=== PATIENT | female | born 1955 | race Caucasian/White ===

== ENCOUNTER 2016-10-22 14:44 | Outpatient (CLI) | payer MEDICARE, MEDICAID | END 2016-10-22 14:45 | disposition EMS.NT | DX: M79.605 Pain in left leg (principal) | CPT/HCPCS: A0425; A0429 ==

== ENCOUNTER 2016-10-22 14:55 | Emergency (ER) | payer MEDICARE, MEDICAID ==
[2016-10-22] MEDS ORDERED: ACETAMINOPHEN 325 MG TABLET PO ONE (16:23)
[2016-10-22] MEDS ORDERED: KETOROLAC 60 MG/2 ML VIAL ONE (16:23)
[2016-10-22] MEDS: ACETAMINOPHEN 325 MG TABLET PO STA (16:26)
[2016-10-22] MEDS: KETOROLAC 60 MG/2 ML VIAL IM STA (16:26)
== END 2016-10-22 19:00 | disposition home or self-care (01) ==
DX: S82.035A Nondisplaced transverse fracture of left patella, initial encounter for closed fracture (principal); W19.XXXA Unspecified fall, initial encounter; Y92.009 Unspecified place in unspecified non-institutional (private) residence as the place of occurrence of the external cause; M19.90 Unspecified osteoarthritis, unspecified site
CPT/HCPCS: 36415; 73564; 80053; 83690; 96372; 99283; 99284; A9270

== ENCOUNTER 2017-01-23 15:21 | Outpatient (CLI) | payer MEDICARE, MEDICAID | END 2017-01-23 15:22 | disposition home or self-care (01) | LOC: NS 15:21 | PROVIDERS: ATTEND Family Medicine | DX: Z71.3 Dietary counseling and surveillance (principal); E66.3 Overweight; Q87.1 Congenital malformation syndromes predominantly associated with short stature; Z68.41 Body mass index [BMI] 40.0-44.9, adult | CPT/HCPCS: 97802 ==

== ENCOUNTER 2017-01-30 10:02 | Outpatient (CLI) | payer MEDICARE, MEDICAID | END 2017-01-30 10:03 | disposition critical access hospital (66) | LOC: EMS 10:02 | PROVIDERS: ATTEND Surgery | DX: R53.1 Weakness (principal) | CPT/HCPCS: A0425; A0429 ==

== ENCOUNTER 2017-01-30 10:21 | Emergency (ER) | payer MEDICARE, MEDICAID ==
--- NOTE | 2017-01-30 11:13 | ED Physician Documentation ---
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 She last had chemo last week consisting of cytoxan orally and 5FU/ methotrexate weekly. She had last infusion one week ago and has now developed diarrhea and weakness without fever. Review of Systems Constitutional: reports: Myalgias, Fatigue. denies: Fever, Chills Eyes: denies: Decreased vision Ears: denies: Ear pain Nose: denies: Rhinorrhea / runny nose, Congestion Throat: denies: Sore throat Cardiac: denies: Chest pain / pressure, Palpitations Respiratory: denies: Dyspnea, Cough GI: reports: Diarrhea. denies: Abdominal Pain, Nausea, Vomiting : denies: Dysuria, Frequency Skin: denies: Rash Musculoskeletal: denies: Neck pain, Back pain, Extremity pain Neurologic: reports: Generalized weakness. denies: Focal weakness, Numbness PD PAST MEDICAL HISTORY - Past Medical History Cardiovascular: None Respiratory: None Neuro: CVA Endocrine/Autoimmune: None GI: GERD : None Psych: Eating disorder Musculoskeletal: Osteoarthritis, Fatigue, Scoliosis, Chronic back pain - Past Surgical History Past Surgical History: Yes General: Other Ortho: Spine surgery, Other HEENT: Tonsil/Adenoidectomy - Present Medications Home Medications: Ambulatory Orders Medication Instructions Recorded Confirmed Sertraline HCl 200 mg PO DAILY 12/19/12 01/30/17 Furosemide [Lasix] 80 mg PO BID 08/10/13 01/30/17 Multivitamin [Multivitamins] 1 each PO DAILY 08/10/13 01/30/17 Ascorbic Acid [Vitamin C] 500 mg ORAL DAILY 01/30/17 01/30/17 Calcium Carbonate/Vitamin D3 500 mg ORAL TID 01/30/17 01/30/17 [Calcium 500-Vit D3 200 Tablet] Cholecalciferol (Vitamin D3) 100 unit ORAL BID 01/30/17 01/30/17 [Vitamin D3] Cyclophosphamide 100 mg PO BID 01/30/17 01/30/17 Docusate Sodium 100 mg PO DAILY PRN 01/30/17 01/30/17 Ferrous Gluconate 324 mg PO DAILY 01/30/17 01/30/17 Lactobacillus Acidophilus 1 tab ORAL DAILY 01/30/17 01/30/17 [Acidophilus] Omeprazole [PriLOSEC] 20 mg ORAL DAILY 01/30/17 01/30/17 Spironolactone 25 mg PO DAILY 01/30/17 01/30/17 Vit B1/B2/B6/FA/Mecobalamin 1,000 mg ORAL DAILY 01/30/17 01/30/17 [Methaver 109 mg Capsule] - Allergies Allergies/Adverse Reactions: Allergies Allergy/AdvReac Type Severity Reaction Status Date / Time methohexital sodium * Allergy Respiratory Verified 06/28/16 17:22 [From Brevital] metoclopramide HCl * Allergy Respiratory Verified 06/28/16 17:22 [From Reglan] - Social History Does the pt smoke?: No Smoking Status: Never smoker Does the pt drink ETOH?: No Does the pt have substance abuse?: No - Immunizations Immunizations are current?: Yes - POLST Patient has POLST: No PD ED PE NORMAL - Vitals Vital signs reviewed: Yes (hypertensive) - General General: No acute distress, Well developed/nourished - HEENT HEENT: Atraumatic, PERRL, EOMI, Other (cerumen on the right the left is clear mucous membranes are dry and the patient has no upper teeth. ) - Neck Neck: Supple, no meningeal sign, No bony TTP - Cardiac Cardiac: RRR, No murmur - Respiratory Respiratory: No respiratory distress, Clear bilaterally - Abdomen Abdomen: Soft, Non tender - Back Back: No CVA TTP, No spinal TTP - Derm Derm: Normal color, No rash - Extremities Extremities: No deformity, No edema - Neuro Neuro: Alert and oriented X 3, No motor deficit, No sensory deficit, Normal speech - Psych Psych: Normal mood, Normal affect Results - Vitals Vitals: Vital Signs - 24 hr 01/30/17 01/30/17 10:23 13:13 Temperature 36.1 C L 37 C Heart Rate 71 70 Respiratory 20 16 Rate Blood Pressure 123/95 H 143/93 H O2 Saturation 95 98 Oxygen O2 Source Nasal cannula - Labs Labs: Laboratory Tests 01/30/17 01/30/17 01/30/17 11:50 11:55 11:55 WBC 3.0 L RBC 3.88 L Hgb 12.5 Hct 35.8 L MCV 92.3 MCH 32.1 H MCHC 34.8 RDW 23.8 H Plt Count 137 MPV 7.2 L Neut # 2.4 Lymph # 0.2 L [place] # 0.2 Eos # 0.1 Baso # 0.0 Absolute Nucleated RBC 0.00 Nucleated RBCs 0.0 Manual Slide Review Indicated RBC Morph Micro Appear 2+ ANISOCYTOSIS Sodium 136 Potassium 2.9 L Chloride 93 L Carbon Dioxide 32 Anion Gap 11.0 BUN 18 Creatinine 0.4 Estimated GFR (MDRD) 163 Glucose 104 H Lactic Acid Calcium 10.4 H Total Bilirubin 1.6 H AST 29 ALT 22 Alkaline Phosphatase 97 Troponin I Total Protein 7.3 Albumin 4.1 Globulin 3.2 Albumin/Globulin Ratio 1.3 Lipase 23 Urine Color YELLOW Urine Clarity CLEAR Urine pH 7.0 Ur Specific [place] 1.010 Urine Protein NEGATIVE Urine Glucose (UA) NEGATIVE Urine Ketones NEGATIVE Urine Occult Blood NEGATIVE Urine Nitrite NEGATIVE Urine Bilirubin NEGATIVE Urine Urobilinogen 0.2 (NORMAL) Ur Leukocyte Esterase NEGATIVE Ur Microscopic Review NOT INDICATED Urine Culture Comments NOT INDICATED 01/30/17 01/30/17 11:55 11:55 WBC RBC Hgb Hct MCV MCH MCHC RDW Plt Count MPV Neut # Lymph # [place] # Eos # Baso # Absolute Nucleated RBC Nucleated RBCs Manual Slide Review RBC Morph Micro Appear Sodium Potassium Chloride Carbon Dioxide Anion Gap BUN Creatinine Estimated GFR (MDRD) Glucose Lactic Acid 0.9 Calcium Total Bilirubin AST ALT Alkaline Phosphatase Troponin I < 0.04 Total Protein Albumin Globulin Albumin/Globulin Ratio Lipase Urine Color Urine Clarity Urine pH Ur Specific [place] Urine Protein Urine Glucose (UA) Urine Ketones Urine Occult Blood Urine Nitrite Urine Bilirubin Urine Urobilinogen Ur Leukocyte Esterase Ur Microscopic Review Urine Culture Comments - Rads (name of study) 2 view chest Radiology: Prelim report reviewed (Impression: 1. No focal consolidation. 2. 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 Departure - Departure Disposition: 01 Home, Self Care Clinical Impression: Dehydration, Hypokalemia Instructions: ED Diet High Potassium, ED Dehydration Follow-Up: Violetta Sams MD [Primary Care Provider] -
--- NOTE | 2017-01-30 11:17 | XRAY Report ---
EXAM: CHEST RADIOGRAPHY EXAM DATE: 01/30/2017 10:57 AM. CLINICAL HISTORY: Weakness on chemo. COMPARISON: Chest radiograph dated 11/10/2012. TECHNIQUE: 2 views. FINDINGS: Lungs/Pleura: No focal opacities evident. No pleural effusion. No pneumothorax. Normal volumes. Mediastinum: The heart is enlarged. The pulmonary vasculature is centrally indistinct. Other: Left-sided Port-A-Cath position of this catheter tip at the junction of the SVC and left brach iocephalic vein. IMPRESSION: 1. No focal consolidation. 2. Cardiomegaly with mild central pulmonary vascular congestion. [facility] Referring Provider Line: [phone] SITE ID: [id number]
[2017-01-30 12:09] LABS: BILIRUBIN,URINE NEGATIVE (NEGATIVE)
[2017-01-30 12:10] LABS: BASOPHILS % (AUTO) 0.4 %; EOSINOPHILS # (AUTO) 0.1 10^3/uL (0.0-0.7); EOSINOPHILS % (AUTO) 4.9 %; HCT - HEMATOCRIT 35.8 % (37.0-47.0); HGB - HEMOGLOBIN 12.5 g/dL (12.0-16.0); LYMPHOCYTES # (AUTO) 0.2 10^3/uL (1.5-3.5); LYMPHOCYTES % (AUTO) 6.9 %; MEAN CORPUSCULAR HEMOGLOBIN 32.1 pg (27.0-31.0); MEAN CORPUSCULAR HGB CONC 34.8 g/dL (32.0-36.0); MEAN CORPUSCULAR VOLUME 92.3 fL (81.0-99.0); MEAN PLATELET VOLUME 7.2 fL (7.9-10.8); MONOCYTES # (AUTO) 0.2 10^3/uL (0.0-1.0); MONOCYTES % (AUTO) 7.5 %; NEUTROPHILS # (AUTO) 2.4 10^3/uL (1.5-6.6); NEUTROPHILS % (AUTO) 80.3 %; RED BLOOD COUNT 3.88 10^6/uL (4.20-5.40); RED CELL DISTRIBUTION WIDTH 23.8 % (12.0-15.0)
[2017-01-30 12:10] LABS: UA CHARGE (STRIP ONLY) YES; UR CULTURE IF IND NOT INDICATED
[2017-01-30 12:17] LABS: ALBUMIN/GLOBULIN RATIO 1.3 (1.0-2.2); BILIRUBIN,TOTAL 1.6 mg/dL (0.2-1.0); CALCIUM 10.4 mg/dL (8.5-10.3); CREATININE 0.4 mg/dL (0.4-1.0); POTASSIUM 2.9 mmol/L (3.5-5.0); TOTAL PROTEIN 7.3 g/dL (6.7-8.2)
[2017-01-30] MEDS ORDERED: POTASSIUM BICARB 25 MEQ TABLET PO STA (13:27)
[2017-01-30] MEDS ORDERED: POTASSIUM BICARB 25 MEQ TABLET PO ONE (13:31)
[2017-01-30] MEDS ORDERED: SODIUM CHLORIDE 0.9% 1,000 ML IV ONE (13:59)
[2017-01-30 16:25] VITALS: BP 112/64
== END 2017-01-30 16:33 | disposition home or self-care (01) ==
LOC: EDUNIT# → ED 10:21
DX: E86.0 Dehydration (principal); E87.6 Hypokalemia; C50.919 Malignant neoplasm of unspecified site of unspecified female breast; Q87.1 Congenital malformation syndromes predominantly associated with short stature; Z86.73 Personal history of transient ischemic attack (TIA), and cerebral infarction without residual deficits; K21.9 Gastro-esophageal reflux disease without esophagitis; M19.90 Unspecified osteoarthritis, unspecified site
CPT/HCPCS: 36415; 71020; 80053; 81003; 83605; 83690; 84484; 85025; 87040; 96374; 99284; A9270; 81001; 87086

== ENCOUNTER 2017-02-04 10:04 | Outpatient (CLI) | payer MEDICARE, MEDICAID | END 2017-02-04 10:05 | disposition critical access hospital (66) | LOC: EMS 10:04 | PROVIDERS: ATTEND Surgery | DX: R19.7 Diarrhea, unspecified (principal); R53.1 Weakness | CPT/HCPCS: A0425; A0429 ==

== ENCOUNTER 2017-02-04 10:12 | Emergency (ER) | payer MEDICARE, MEDICAID ==
[2017-02-04] MEDS ORDERED: SODIUM CHLORIDE 0.9% 500 ML IV ONE (10:32)
[2017-02-04] MEDS ORDERED: SODIUM CHLORIDE 0.9% 30 ML ONE (10:44)
[2017-02-04 11:35] LABS: BASOPHILS % (AUTO) 0.5 %; EOSINOPHILS # (AUTO) 0.1 10^3/uL (0.0-0.7); EOSINOPHILS % (AUTO) 3.1 %; HCT - HEMATOCRIT 30.7 % (37.0-47.0); HGB - HEMOGLOBIN 10.9 g/dL (12.0-16.0); LYMPHOCYTES # (AUTO) 0.1 10^3/uL (1.5-3.5); LYMPHOCYTES % (AUTO) 3.8 %; MEAN CORPUSCULAR HGB CONC 35.6 g/dL (32.0-36.0); MEAN CORPUSCULAR VOLUME 92.7 fL (81.0-99.0); MEAN PLATELET VOLUME 7.6 fL (7.9-10.8); MONOCYTES # (AUTO) 0.2 10^3/uL (0.0-1.0); MONOCYTES % (AUTO) 5.1 %; NEUTROPHILS # (AUTO) 2.8 10^3/uL (1.5-6.6); NEUTROPHILS % (AUTO) 87.5 %; NUCLEATED RED BLOOD CELLS AUTO 0.1 /100WBC; RED BLOOD COUNT 3.31 10^6/uL (4.20-5.40); RED CELL DISTRIBUTION WIDTH 22.7 % (12.0-15.0); UNCORRECTED WHITE BLOOD COUNT 3.2 x10^3/uL; WHITE BLOOD COUNT 3.2 x10^3/uL (4.8-10.8)
[2017-02-04 11:46] LABS: ALBUMIN/GLOBULIN RATIO 1.3 (1.0-2.2); BILIRUBIN,TOTAL 0.9 mg/dL (0.2-1.0); CALCIUM 9.5 mg/dL (8.5-10.3); CREATININE 0.4 mg/dL (0.4-1.0); POTASSIUM 3.1 mmol/L (3.5-5.0); TOTAL PROTEIN 6.1 g/dL (6.7-8.2)
[2017-02-04 12:34] LABS: BILIRUBIN,URINE NEGATIVE (NEGATIVE)
[2017-02-04 12:38] LABS: UA CHARGE (STRIP ONLY) YES; UR CULTURE IF IND NOT INDICATED
[2017-02-04] MEDS ORDERED: POTASSIUM BICARB 25 MEQ TABLET PO STA (13:20)
[2017-02-04] MEDS ORDERED: POTASSIUM BICARB 25 MEQ TABLET PO ONE (13:21)
--- NOTE | 2017-02-04 13:29 | ED Physician Documentation ---
PD HPI NVD - Stated complaint Stated Complaint: WEAKNESS - Chief complaint Chief Complaint: Abd Pain - History obtained from History obtained from: Patient - History of Present Illness Timing - onset: Today Timing - duration: Hours Timing - details: Gradual onset, Still present Associated symptoms: Other (diarreha and weakness) Improved by: Laying still, BM Worsened by: Moving Similar symptoms before: Diagnosis (dehydration) Recently seen: Emergency Dept (Seen here for dehydration with chemo and given IV saline last week.), Other (The patient is getting chemo for breast cancer.) - Additonal information Additional information: 61 y/o Female with a history of Prader-Willi syndrome has been receiving chemotherapy for breast cancer and she has developed some diarrhea this morning and weakness. Review of Systems Constitutional: reports: Myalgias, Fatigue. denies: Fever, Chills Eyes: denies: Decreased vision Throat: denies: Sore throat Cardiac: denies: Chest pain / pressure, Palpitations Respiratory: denies: Dyspnea, Cough GI: reports: Abdominal Pain, Nausea, Diarrhea : denies: Dysuria, Frequency Skin: denies: Rash Musculoskeletal: denies: Neck pain, Back pain, Extremity pain PD PAST MEDICAL HISTORY - Past Medical History Cardiovascular: None Respiratory: None Neuro: CVA Endocrine/Autoimmune: None GI: GERD : None Psych: Eating disorder Musculoskeletal: Osteoarthritis, Fatigue, Scoliosis, Chronic back pain Other Past Medical History: Breast Ca, with current chemotherapy treatment - Past Surgical History Past Surgical History: Yes General: Other Ortho: Spine surgery, Other HEENT: Tonsil/Adenoidectomy - Present Medications Home Medications: Ambulatory Orders Medication Instructions Recorded Confirmed Sertraline HCl 200 mg PO DAILY 12/19/12 02/04/17 Furosemide [Lasix] 80 mg PO BID 08/10/13 02/04/17 Multivitamin [Multivitamins] 1 each PO DAILY 08/10/13 02/04/17 Ascorbic Acid [Vitamin C] 500 mg ORAL DAILY 01/30/17 02/04/17 Calcium Carbonate/Vitamin D3 500 mg ORAL TID 01/30/17 02/04/17 [Calcium 500-Vit D3 200 Tablet] Cholecalciferol (Vitamin D3) 100 unit ORAL BID 01/30/17 02/04/17 [Vitamin D3] Cyclophosphamide 100 mg PO BID 01/30/17 02/04/17 Docusate Sodium 100 mg PO DAILY PRN 01/30/17 02/04/17 Ferrous Gluconate 324 mg PO DAILY 01/30/17 02/04/17 Lactobacillus Acidophilus 1 tab ORAL DAILY 01/30/17 02/04/17 [Acidophilus] Omeprazole [PriLOSEC] 20 mg ORAL DAILY 01/30/17 02/04/17 Spironolactone 25 mg PO DAILY 01/30/17 02/04/17 Vit B1/B2/B6/FA/Mecobalamin 1,000 mg ORAL DAILY 01/30/17 02/04/17 [Methaver 109 mg Capsule] - Allergies Allergies/Adverse Reactions: Allergies Allergy/AdvReac Type Severity Reaction Status Date / Time methohexital sodium * Allergy Respiratory Verified 02/04/17 10:19 [From Brevital] metoclopramide HCl * Allergy Respiratory Verified 02/04/17 10:19 [From Reglan] - Social History Does the pt smoke?: No Smoking Status: Never smoker Does the pt drink ETOH?: No Does the pt have substance abuse?: No - Immunizations Immunizations are current?: Yes - POLST Patient has POLST: No PD ED PE NORMAL - Vitals Vital signs reviewed: Yes (Normal) - General General: No acute distress, Well developed/nourished - HEENT HEENT: Atraumatic - Neck Neck: Supple, no meningeal sign - Cardiac Cardiac: RRR, No murmur - Respiratory Respiratory: No respiratory distress, Clear bilaterally - Abdomen Abdomen: Soft, Non tender - Back Back: No CVA TTP, No spinal TTP - Derm Derm: Normal color, Warm and dry, No rash - Extremities Extremities: Other (Bilateral lower extremity nonpitting edema.) - Neuro Neuro: No motor deficit, No sensory deficit - Psych Psych: Normal mood, Normal affect Results - Vitals Vitals: Vital Signs - 24 hr 02/04/17 02/04/17 10:15 13:27 Temperature 36.6 C Heart Rate 73 75 Respiratory 16 16 Rate Blood Pressure 119/63 122/70 O2 Saturation 100 100 Oxygen O2 Source Room air - Labs Labs: Microbiology 02/04/17 10:50 Clostridium difficile (PCR) - Final Stool 02/04/17 10:50 Campylobacter Antigen Assay - Final Stool Laboratory Tests 02/04/17 02/04/17 02/04/17 11:25 11:25 12:24 WBC 3.2 L RBC 3.31 L Hgb 10.9 L Hct 30.7 L MCV 92.7 MCH 33.0 H MCHC 35.6 RDW 22.7 H Plt Count 130 MPV 7.6 L Neut # 2.8 Lymph # 0.1 L [place] # 0.2 Eos # 0.1 Baso # 0.0 Absolute Nucleated RBC 0.00 Nucleated RBCs 0.1 Manual Slide Review Indicated RBC Morph Micro Appear 1+ SCHISTOCYTES Sodium 130 L Potassium 3.1 L Chloride 94 L Carbon Dioxide 30 Anion Gap 6.0 BUN 19 Creatinine 0.4 Estimated GFR (MDRD) 163 Glucose 169 H Calcium 9.5 Total Bilirubin 0.9 AST 30 ALT 31 Alkaline Phosphatase 89 Total Protein 6.1 L Albumin 3.4 Globulin 2.7 Albumin/Globulin Ratio 1.3 Lipase 26 Urine Color YELLOW Urine Clarity CLEAR Urine pH 6.0 Ur Specific [place] <=1.005 Urine Protein NEGATIVE Urine Glucose (UA) NEGATIVE Urine Ketones NEGATIVE Urine Occult Blood NEGATIVE Urine Nitrite NEGATIVE Urine Bilirubin NEGATIVE Urine Urobilinogen 0.2 (NORMAL) Ur Leukocyte Esterase NEGATIVE Ur Microscopic Review NOT INDICATED Urine Culture Comments NOT INDICATED Procedures - IVC sono (time) 1040 Bedside IVC sono: IVC measures (cm) (1.7), IVC collapsed c insp (cm) (0.8), Euvolemia PD MEDICAL DECISION MAKING - ED course Complexity details: reviewed old records, reviewed results, re-evaluated patient , considered differential, d/w patient ED course: 61-year-old female with Prader-Willi syndrome has developed diarrhea and weakness she is undergoing chemotherapy she was here last week for hydration and did well with that. Here in the emergency department today she does not appear dehydrated on interrogation of the inferior vena cava and she is given 500 mL's of saline as well as 25 mEq of potassium chloride for a low potassium. Departure - Departure Disposition: 01 Home, Self Care Clinical Impression: Hypokalemia Condition: Stable Instructions: ED Diet High Potassium Follow-Up: Violetta Sams MD [Primary Care Provider] -
[2017-02-04 13:30] VITALS: BP 122/70
== END 2017-02-04 14:59 | disposition home or self-care (01) ==
LOC: EDUNIT# → ED 10:12
DX: E87.6 Hypokalemia (principal); C50.919 Malignant neoplasm of unspecified site of unspecified female breast; Z92.21 Personal history of antineoplastic chemotherapy; Q87.1 Congenital malformation syndromes predominantly associated with short stature
CPT/HCPCS: 36415; 80053; 81003; 83690; 85025; 87045; 87046; 87077; 87493; 96360; 96361; 99283; A9270; 81001; 87086

== ENCOUNTER 2017-02-09 09:08 | Outpatient (CLI) | payer MEDICARE, MEDICAID | END 2017-02-09 09:09 | disposition EMS.NT | LOC: EMS 09:08 | PROVIDERS: ATTEND Surgery | DX: Z03.89 Encounter for observation for other suspected diseases and conditions ruled out (principal) ==

== ENCOUNTER 2017-02-11 08:50 | Outpatient (CLI) | payer MEDICARE, MEDICAID | END 2017-02-11 08:51 | disposition critical access hospital (66) | DX: R53.1 Weakness (principal); R19.7 Diarrhea, unspecified; W18.39XA Other fall on same level, initial encounter; Y92.038 Other place in apartment as the place of occurrence of the external cause | CPT/HCPCS: A0425; A0429 ==

== ENCOUNTER 2017-02-11 08:57 | Emergency (ER) | payer MEDICARE, MEDICAID ==
[2017-02-11] MEDS ORDERED: SODIUM CHLORIDE 0.9% 1,000 ML IV ONE (09:21)
[2017-02-11] MEDS ORDERED: POTASSIUM BICARB 25 MEQ TABLET PO STA (12:30)
[2017-02-11] MEDS ORDERED: POTASSIUM BICARB 25 MEQ TABLET PO ONE (12:32)
== END 2017-02-11 13:14 | disposition home or self-care (01) ==
DX: E86.0 Dehydration (principal); E87.6 Hypokalemia; R53.1 Weakness; W01.0XXA Fall on same level from slipping, tripping and stumbling without subsequent striking against object, initial encounter; Q87.1 Congenital malformation syndromes predominantly associated with short stature; C50.919 Malignant neoplasm of unspecified site of unspecified female breast; Z79.899 Other long term (current) drug therapy; Z86.73 Personal history of transient ischemic attack (TIA), and cerebral infarction without residual deficits; K21.9 Gastro-esophageal reflux disease without esophagitis; M19.90 Unspecified osteoarthritis, unspecified site
CPT/HCPCS: 36415; 36556; 80053; 81003; 83690; 85025; 99283; 99284; A9270

== ENCOUNTER 2017-02-13 11:35 | Outpatient (CLI) | payer MEDICARE, MEDICAID | END 2017-02-13 11:36 | disposition critical access hospital (66) | DX: R41.9 Unspecified symptoms and signs involving cognitive functions and awareness (principal); R29.6 Repeated falls | CPT/HCPCS: A0425; A0429 ==

== ENCOUNTER 2017-02-13 11:51 | Emergency (ER) | payer MEDICARE, MEDICAID ==
--- NOTE | 2017-02-13 12:24 | ED Physician Documentation ---
PD HPI ALTERED MENTAL STATUS - Stated complaint Stated Complaint: MENTAL STATUS CHANGE - Chief complaint Chief Complaint: General - History obtained from History obtained from: Patient, EMS, Caregiver - History of Present Illness Timing - onset: How many weeks ago (1-2 weeks of seeming somewhat spacey, confused at times, and somewhat more off balance walking. Caregiver noted her having troubles playing a card game today that is usually easy for her. No focal weakness. Patient has been getting chemo for the past 3 weeks and initially attributed to that. However caregiver concerned as seems to be worsening. Patient did have fall last week and struck her head. No apparent headaches.) Timing - duration: Weeks (1-2) Timing - details: Gradual onset, Still present Quality / character: Confused, Other (more off balance and seems to stare blankly at times, confused.) Associated symptoms: No: Fever, Headache, Dyspnea, Cough, NVD (less intake as some nausea from chemo. No vomiting nor diarrhea per se.) Contributing factors: Recent med change (getting chemo weekly for the past 3 weeks, post breast cancer surgery 3 months ago), Recent injury. No: Diabetic, Recent illness, Substance abuse Basline status: Ambulatory, Walker. No: Independent (has caregivers usually due to cognitive and physical delays.) Similar symptoms before: Has not had sx before Recently seen: Clinic (chemotherapy the past 3 weeks) Review of Systems Constitutional: denies: Fever, Chills Nose: reports: Congestion. denies: Rhinorrhea / runny nose Throat: denies: Sore throat Cardiac: denies: Chest pain / pressure Respiratory: denies: Dyspnea, Cough GI: reports: Nausea. denies: Vomiting, Diarrhea, Bloody / black stool : denies: Dysuria, Frequency Skin: denies: Rash, Lesions Neurologic: reports: Head injury (fell last week and did hit her head per provider.). denies: Focal weakness, Numbness, Headache Endocrine: reports: Weight loss (in past few months) Immunocompromised: reports: Immunocompromised PD PAST MEDICAL HISTORY - Past Medical History Past Medical History: Yes Cardiovascular: None Respiratory: None Neuro: CVA Endocrine/Autoimmune: None GI: GERD [employer]: Breast cancer : None Psych: Eating disorder Musculoskeletal: Osteoarthritis, Fatigue, Scoliosis, Chronic back pain, Other ( recent breast cancer Dx with surgery few months ago) - Past Surgical History Past Surgical History: Yes General: Other Ortho: Spine surgery, Other HEENT: Tonsil/Adenoidectomy - Present Medications Home Medications: Ambulatory Orders Medication Instructions Recorded Confirmed Sertraline HCl 200 mg PO DAILY 12/19/12 02/13/17 Furosemide [Lasix] 80 mg PO BID 08/10/13 02/13/17 Multivitamin [Multivitamins] 1 each PO DAILY 08/10/13 02/13/17 Ascorbic Acid [Vitamin C] 500 mg ORAL DAILY 01/30/17 02/13/17 Calcium Carbonate/Vitamin D3 500 mg ORAL TID 01/30/17 02/13/17 [Calcium 500-Vit D3 200 Tablet] Cholecalciferol (Vitamin D3) 100 unit ORAL BID 01/30/17 02/13/17 [Vitamin D3] Cyclophosphamide 100 mg PO BID 01/30/17 02/13/17 Docusate Sodium 100 mg PO DAILY PRN 01/30/17 02/13/17 Ferrous Gluconate 324 mg PO DAILY 01/30/17 02/13/17 Lactobacillus Acidophilus 1 tab ORAL DAILY 01/30/17 02/13/17 [Acidophilus] Omeprazole [PriLOSEC] 20 mg ORAL DAILY 01/30/17 02/13/17 Spironolactone 25 mg PO DAILY 01/30/17 02/13/17 Vit B1/B2/B6/FA/Mecobalamin 1,000 mg ORAL DAILY 01/30/17 02/13/17 [Methaver 109 mg Capsule] Potassium Chloride 10 meq PO DAILY #15 tablet.er 02/13/17 - Allergies Allergies/Adverse Reactions: Allergies Allergy/AdvReac Type Severity Reaction Status Date / Time methohexital sodium * Allergy Respiratory Verified 02/13/17 12:04 [From Brevital] metoclopramide HCl * Allergy Respiratory Verified 02/13/17 12:04 [From Reglan] - Social History Does the pt smoke?: No Smoking Status: Never smoker Does the pt drink ETOH?: No Does the pt have substance abuse?: No - Immunizations Immunizations are current?: Yes - POLST Patient has POLST: No PD ED PE NORMAL - Vitals Vital signs reviewed: Yes - General General: Alert and oriented X 3, No acute distress (she is talking and answering questions similar to what I have seen from her in the past. ), Well developed/nourished, Other (physical changes c/w developmental and physical congenital problems.) - HEENT HEENT: Atraumatic, Ears normal, Pharynx benign - Neck Neck: Supple, no meningeal sign, No adenopathy - Cardiac Cardiac: RRR, No murmur - Respiratory Respiratory: Clear bilaterally - Abdomen Abdomen: Soft, Non tender - Back Back: No CVA TTP - Derm Derm: Normal color, Warm and dry, No rash - Extremities Extremities: No tenderness to palpate, Normal ROM s pain, No calf tenderness / cord, Other (1+ edema in both legs, without calf tenderness) - Neuro Neuro: Alert and oriented X 3, No motor deficit, Normal speech (for her) Results - Vitals Vitals: Vital Signs - 24 hr 02/13/17 02/13/17 11:51 14:36 Temperature 36.6 C Heart Rate 70 67 Respiratory 20 20 Rate Blood Pressure 122/61 121/62 O2 Saturation 96 100 Oxygen O2 Source Room air - Labs Labs: Laboratory Tests 02/13/17 02/13/17 02/13/17 12:28 15:25 15:25 WBC 4.7 L RBC 3.41 L Hgb 11.3 L Hct 32.1 L MCV 94.1 MCH 33.2 H MCHC 35.3 RDW 22.2 H Plt Count 153 MPV 7.8 L Manual Slide Review Indicated Sodium 131 L Potassium 2.6 L Chloride 91 L Carbon Dioxide 31 Anion Gap 9.0 BUN 16 Creatinine 0.4 Estimated GFR (MDRD) 163 Glucose 153 H Lactic Acid Calcium 8.6 Magnesium 1.7 Total Bilirubin 1.5 H AST 22 ALT 22 Alkaline Phosphatase 82 Total Protein 6.6 L Albumin 3.3 Globulin 3.3 Albumin/Globulin Ratio 1.0 Lipase 28 Urine Color YELLOW Urine Clarity CLEAR Urine pH 6.5 Ur Specific [place] <=1.005 Urine Protein NEGATIVE Urine Glucose (UA) NEGATIVE Urine Ketones NEGATIVE Urine Occult Blood NEGATIVE Urine Nitrite NEGATIVE Urine Bilirubin NEGATIVE Urine Urobilinogen 0.2 (NORMAL) Ur Leukocyte Esterase NEGATIVE Ur Microscopic Review NOT INDICATED Urine Culture Comments NOT INDICATED 02/13/17 15:25 WBC RBC Hgb Hct MCV MCH MCHC RDW Plt Count MPV Manual Slide Review Sodium Potassium Chloride Carbon Dioxide Anion Gap BUN Creatinine Estimated GFR (MDRD) Glucose Lactic Acid 1.0 Calcium Magnesium Total Bilirubin AST ALT Alkaline Phosphatase Total Protein Albumin Globulin Albumin/Globulin Ratio Lipase Urine Color Urine Clarity Urine pH Ur Specific [place] Urine Protein Urine Glucose (UA) Urine Ketones Urine Occult Blood Urine Nitrite Urine Bilirubin Urine Urobilinogen Ur Leukocyte Esterase Ur Microscopic Review Urine Culture Comments - Rads (name of study) chest Radiology: Prelim report reviewed (no infiltrates) head CT Radiology: Prelim report reviewed (no acute process) PD MEDICAL DECISION MAKING - ED course Complexity details: reviewed results, considered differential (she seems her usual self to me, from prior ED visits, but the caregivers certainly know her better and are seeing some confusion and slight incoordination. Could be vikram ffect of chemo. But will check CT head, CXR, UA and labs to look for metabolic effect, bleeding/injury, infection/sepsis, as other serious potential causes. ) , d/w patient Departure - Departure Disposition: 01 Home, Self Care Clinical Impression: Dehydration, Hypokalemia, Confused but orients easily Condition: Stable Record reviewed to determine appropriate education?: Yes Follow-Up: Violetta Sams MD [Primary Care Provider] - Prescriptions: Potassium Chloride 10 meq PO DAILY #15 tablet.er Comments: Regular medications and add Potassium supplement daily for 2 weeks. The tests today look okay with exception of low potassium of 2.6. No signs of infections, sepsis, head CT is okay, urine is good. This might be effect of chemo. Encourage regular fluids. Follow up with PMD/Oncology as planned.
[2017-02-13] MEDS ORDERED: SODIUM CHLORIDE 0.9% 1,000 ML IV ONE (12:58)
[2017-02-13 13:34] LABS: BILIRUBIN,URINE NEGATIVE (NEGATIVE); PH,URINE 6.5 PH (5.0-7.5)
[2017-02-13 13:43] LABS: UA CHARGE (STRIP ONLY) YES; UR CULTURE IF IND NOT INDICATED
--- NOTE | 2017-02-13 14:23 | XRAY Preliminary Report ---
Exam: XR Chest 1 View IMPRESSION: 1. Mild cardiomegaly. 2. Left subclavian Port-A-Cath. 3. Stable exam. [facility] SITE ID: [id number]
--- NOTE | 2017-02-13 14:43 | XRAY Report ---
EXAM: CHEST RADIOGRAPHY EXAM DATE: 02/13/2017 01:49 PM. CLINICAL HISTORY: Confusion and cough. COMPARISON: 01/30/2017. TECHNIQUE: 1 view. FINDINGS: Lungs/Pleura: No focal opacities evident. No pleural effusion. No pneumothorax. Mediastinum: Stable mild cardiomegaly. Stable left subclavian Port-A-Cath tip mid-third SVC. No adenopathy. Other: None. IMPRESSION: 1. Mild cardiomegaly. 2. Left subclavian Port-A-Cath. 3. Stable exam. [facility] Referring Provider Line: [phone] SITE ID: [id number]
--- NOTE | 2017-02-13 14:53 | CT Preliminary Report ---
Exam: CT Head W/O IMPRESSION: Normal head CT. [facility] SITE ID: [id number]
--- NOTE | 2017-02-13 15:18 | CT Report ---
EXAM: CT HEAD EXAM DATE: 02/13/2017 02:08 p.m. CLINICAL HISTORY: Confusion and balance problems. COMPARISON: 01/29/2016. TECHNIQUE: Multiaxial CT images were obtained from the foramen magnum to the vertex. IV contrast: Non e. Reformats: Sagittal and coronal. In accordance with CT protocol optimization, one or more of the following dose reduction techniques w ere utilized for this exam: automated exposure control, adjustment of mA and/or KV based on patient s ize, or use of iterative reconstructive technique. FINDINGS: Parenchyma: No intraparenchymal hemorrhage. No evidence of mass, midline shift, or CT findings of inf arction. Hernandez-white differentiation is distinct. Extraaxial Spaces: Normal for age. No subdural or epidural collections identified. Ventricles: Normal in size and position. Sinuses: Imaged paranasal sinuses, orbits, and mastoids show no significant abnormality. Bones: No evidence of fracture or calvarial defect. Other: None. IMPRESSION: Normal head CT. [facility] Referring Provider Line: [phone] SITE ID: [id number]
[2017-02-13 15:45] LABS: BILIRUBIN,TOTAL 1.5 mg/dL (0.2-1.0); CALCIUM 8.6 mg/dL (8.5-10.3); CREATININE 0.4 mg/dL (0.4-1.0); MAGNESIUM 1.7 mg/dL (1.7-2.8); POTASSIUM 2.6 mmol/L (3.5-5.0); TOTAL PROTEIN 6.6 g/dL (6.7-8.2)
[2017-02-13 15:49] LABS: BASOPHILS % (AUTO) 0.4 %; EOSINOPHILS # (AUTO) 0.1 10^3/uL (0.0-0.7); EOSINOPHILS % (AUTO) 2.5 %; HCT - HEMATOCRIT 32.1 % (37.0-47.0); HGB - HEMOGLOBIN 11.3 g/dL (12.0-16.0); LYMPHOCYTES # (AUTO) 0.2 10^3/uL (1.5-3.5); LYMPHOCYTES % (AUTO) 3.4 %; MEAN CORPUSCULAR HEMOGLOBIN 33.2 pg (27.0-31.0); MEAN CORPUSCULAR HGB CONC 35.3 g/dL (32.0-36.0); MEAN CORPUSCULAR VOLUME 94.1 fL (81.0-99.0); MEAN PLATELET VOLUME 7.8 fL (7.9-10.8); MONOCYTES # (AUTO) 0.5 10^3/uL (0.0-1.0); MONOCYTES % (AUTO) 9.7 %; NEUTROPHILS # (AUTO) 3.9 10^3/uL (1.5-6.6); NUCLEATED RED BLOOD CELLS AUTO 0.2 /100WBC; RED BLOOD COUNT 3.41 10^6/uL (4.20-5.40); RED CELL DISTRIBUTION WIDTH 22.2 % (12.0-15.0); UNCORRECTED WHITE BLOOD COUNT 4.7 x10^3/uL; WHITE BLOOD COUNT 4.7 x10^3/uL (4.8-10.8)
[2017-02-13] MEDS ORDERED: POTASSIUM BICARB 25 MEQ TABLET PO STA (15:57)
[2017-02-13] MEDS ORDERED: SODIUM CHLORIDE 0.9% 500 ML IV ONE (15:58)
[2017-02-13] MEDS ORDERED: POTASSIUM CHLOR 10 MEQ/100 ML 100 ML IV ONE ×2 (15:58→16:04)
[2017-02-13] MEDS ORDERED: POTASSIUM BICARB 25 MEQ TABLET PO ONE (16:04)
[2017-02-13 16:39] LABS: PLATELET ESTIMATE, MANUAL NORMAL (130-450,000) (NORMAL); PLATELET MORPHOLOGY RARE GIANT PLATELETS (NORMAL)
[2017-02-13 17:25] VITALS: BP 122/70
== END 2017-02-13 17:28 | disposition home or self-care (01) ==
LOC: EDUNIT# → ED 11:51
DX: E86.0 Dehydration (principal); E87.6 Hypokalemia; R41.0 Disorientation, unspecified; Z86.73 Personal history of transient ischemic attack (TIA), and cerebral infarction without residual deficits; K21.9 Gastro-esophageal reflux disease without esophagitis; Z85.3 Personal history of malignant neoplasm of breast; M19.90 Unspecified osteoarthritis, unspecified site
CPT/HCPCS: 36415; 70450; 71010; 80053; 81003; 83605; 83690; 83735; 85025; 96365; 99284; A9270; 81001; 87086

== ENCOUNTER 2017-05-15 05:48 | Outpatient (CLI) | payer MEDICARE, MEDICAID | END 2017-05-15 05:49 | disposition critical access hospital (66) | LOC: EMS 05:48 | PROVIDERS: ATTEND Surgery | DX: M54.9 Dorsalgia, unspecified (principal); W19.XXXA Unspecified fall, initial encounter | CPT/HCPCS: A0425; A0429 ==

== ENCOUNTER 2017-05-15 05:57 | Emergency (ER) | payer MEDICARE, MEDICAID ==
--- NOTE | 2017-05-15 06:05 | ED Physician Documentation ---
PD HPI Fall - Stated complaint Stated Complaint: FALL - Chief complaint Chief Complaint: Trauma Ch/Bk - History obtained from History obtained from: Patient, EMS - History of Present Illness Mechanism of injury: Slipped Fall distance: Standing position Where injury occurred: Home Timing - onset: How many hours ago (9) Injury(ies) location: Head, Back Associated symptoms: No: LOC, AMS, Amnesia Worsens with: Movement, Palpation Contributing factors: No: Anticoagulated, Intoxicated Similar symptoms before: Has not had sx before Recently seen: Not recently seen - Additional information Additional information: Patient is a 62 year old female with a history of CA who was brought to the emergency department for head pain and back pain after falling. Patient states that she got up last night to go to the bathroom and fell. Patient states that she hit her head, and lower back. Patient sates that the pain persisted until this morning so she called ems. Patient denies any loc. Review of Systems Constitutional: denies: Fever, Chills Eyes: denies: Loss of vision, Photophobia Ears: denies: Ear pain, Drainage/discharge Nose: reports: Congestion. denies: Epistaxis Throat: denies: Oral lesions / sores, Sore throat Cardiac: denies: Chest pain / pressure Respiratory: denies: Dyspnea, Cough GI: denies: Nausea, Vomiting : denies: Dysuria, Frequency Skin: denies: Rash, Lesions, Abrasion (s) Musculoskeletal: reports: Back pain. 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: Breast cancer : None Psych: Eating disorder Musculoskeletal: Osteoarthritis, Fatigue, Scoliosis, Chronic back pain, Other ( recent breast cancer Dx with surgery few months ago) - Past Surgical History Past Surgical History: Yes General: Other Ortho: Spine surgery, Other HEENT: Tonsil/Adenoidectomy - Present Medications Home Medications: Ambulatory Orders Medication Instructions Recorded Confirmed Sertraline HCl 200 mg PO DAILY 12/19/12 05/15/17 Furosemide [Lasix] 80 mg PO BID 08/10/13 05/15/17 Multivitamin [Multivitamins] 1 each PO DAILY 08/10/13 05/15/17 Ascorbic Acid [Vitamin C] 500 mg ORAL DAILY 01/30/17 05/15/17 Calcium Carbonate/Vitamin D3 500 mg ORAL TID 01/30/17 05/15/17 [Calcium 500-Vit D3 200 Tablet] Cholecalciferol (Vitamin D3) 100 unit ORAL BID 01/30/17 05/15/17 [Vitamin D3] Cyclophosphamide 100 mg PO BID 01/30/17 05/15/17 Docusate Sodium 100 mg PO DAILY PRN 01/30/17 05/15/17 Ferrous Gluconate 324 mg PO DAILY 01/30/17 05/15/17 Lactobacillus Acidophilus 1 tab ORAL DAILY 01/30/17 05/15/17 [Acidophilus] Omeprazole [PriLOSEC] 20 mg ORAL DAILY 01/30/17 05/15/17 Spironolactone 25 mg PO DAILY 01/30/17 05/15/17 Vit B1/B2/B6/FA/Mecobalamin 1,000 mg ORAL DAILY 01/30/17 05/15/17 [Methaver 109 mg Capsule] Potassium Chloride 10 meq PO DAILY #15 tablet.er 02/13/17 05/15/17 - Allergies Allergies/Adverse Reactions: Allergies Allergy/AdvReac Type Severity Reaction Status Date / Time methohexital sodium * Allergy Respiratory Verified 05/15/17 06:03 [From Brevital] metoclopramide HCl * Allergy Respiratory Verified 05/15/17 06:03 [From Reglan] - Social History Does the pt smoke?: No Smoking Status: Never smoker Does the pt drink ETOH?: No Does the pt have substance abuse?: No - Immunizations Immunizations are current?: Yes - POLST Patient has POLST: No PD ED PE NORMAL - Vitals Vital signs reviewed: Yes - General General: Alert and oriented X 3, No acute distress - HEENT HEENT: PERRL, Pharynx benign - Neck Neck: No bony TTP - Cardiac Cardiac: RRR, No murmur - Respiratory Respiratory: No respiratory distress - Abdomen Abdomen: Soft, Non tender, Non distended - Derm Derm: Normal color, Warm and dry, No rash - Extremities Extremities: No deformity, No tenderness to palpate, No edema - Neuro Neuro: Alert and oriented X 3, No motor deficit, No sensory deficit, Normal speech - Psych Psych: Normal mood, Normal affect PD ED PE EXPANDED - HEENT HEENT: Head injury (mild tenderness to palpation of posterior scalp) - Back Back: Vertebral tenderness (mild tenderness to palpation of lumbar spine) Results - Vitals Vitals: Vital Signs - 24 hr 05/15/17 05:58 Temperature 35.8 C L Heart Rate 77 Respiratory 18 Rate Blood Pressure 155/108 H O2 Saturation 98 Oxygen O2 Source Room air - Rads (name of study) ct head Radiology: Final report received (no acute intracranial pathology) lumbar spine Radiology: Final report received (scoliosis, degnerative disk disease, no acute fracture), EMP read contemporaneously PD MEDICAL DECISION MAKING - ED course Complexity details: reviewed old records, reviewed results, re-evaluated patient , considered differential, d/w patient ED course: Patient was seen and examined at bedside. patient was sent for imaging. when patient returned the results were reviewed. there was no acute fracture, dislocation or intracranial pathology. Patient required no further work up and was stable for discharge with outpatient follow up. Departure - Departure Disposition: 01 Home, Self Care Clinical Impression: Fall Condition: Good Instructions: Falls Risks Prevent Follow-Up: Violetta Sams MD [Primary Care Provider] - As Needed Comments: Your diagnostics today were within normal limits. there was no acute fracture or dislocations today. you should be careful when trying to ambulate. you can take tylenol as needed for pain. You should follow up with your pmd as needed. You may return to the emergency department at any time for new, worsening or uncontrollable symptoms.
--- NOTE | 2017-05-15 06:57 | CT Preliminary Report ---
Exam: CT Head W/O IMPRESSION: No acute or focal intracranial abnormality. Stable findings since 02/13/2017. [facility] SITE ID: [id number]
--- NOTE | 2017-05-15 07:00 | CT Report ---
EXAM: CT HEAD EXAM DATE: 05/15/2017 06:43 AM. CLINICAL HISTORY: Fall, head pain. COMPARISON: 02/13/2017. TECHNIQUE: Multiaxial CT images were obtained from the foramen magnum to the vertex. IV contrast: Non e. Reformats: Coronal. In accordance with CT protocol optimization, one or more of the following dose reduction techniques w ere utilized for this exam: automated exposure control, adjustment of mA and/or KV based on patient s ize, or use of iterative reconstructive technique. FINDINGS: Parenchyma: No intraparenchymal hemorrhage. No evidence of mass, midline shift, or CT findings of inf arction. Hernandez-white differentiation is distinct. Extraaxial Spaces: Normal for age. No subdural or epidural collections identified. Ventricles: Normal in size and position. Sinuses: Imaged paranasal sinuses, orbits, and mastoids show no significant abnormality. Bones: No evidence of fracture or calvarial defect. Other: No change since the prior study. IMPRESSION: No acute or focal intracranial abnormality. Stable findings since 02/13/2017. [facility] Referring Provider Line: [phone] SITE ID: [id number]
--- NOTE | 2017-05-15 07:09 | XRAY Preliminary Report ---
Exam: XR Lumbar Spine 2 View IMPRESSION: 1. No acute lumbar spine abnormalities are identified. 2. Marked multilevel intervertebral disk degenerative changes and facet arthropathy of the lumbar spi ne without significant change. [facility] SITE ID: [id number]
--- NOTE | 2017-05-15 07:12 | XRAY Report ---
EXAM: LUMBOSACRAL SPINE RADIOGRAPHY EXAM DATE: 05/15/2017 06:44 AM. CLINICAL HISTORY: Fall, head and back pain. COMPARISONS: 12/15/2011. 06/16/2016. TECHNIQUE: 3 views. FINDINGS: Alignment: Levoscoliosis of the lumbar spine again seen. Bones: Five [id number] lumbar vertebral bodies are present. No acute fracture or bony lesion. Mu ltifocal degenerative spurring. Disks: Multilevel intervertebral disk degenerative changes of the lumbar spine without significant ch lora. Facets: Extensive facet arthropathy and sclerosis. Sacroiliac Joints: Mild degenerative changes. Sclerosis at the right sacroiliac joint. Soft Tissues: Bowel gas pattern is normal. IMPRESSION: 1. No acute lumbar spine abnormalities are identified. 2. Marked multilevel intervertebral disk degenerative changes and facet arthropathy of the lumbar spi ne without significant change. [facility] Referring Provider Line: [phone] SITE ID: [id number]
[2017-05-15 08:12] VITALS: BP 147/101
== END 2017-05-15 08:52 | disposition home or self-care (01) ==
LOC: EDUNIT# → SUPCPDRO 05:57 → ED 05:57
DX: R51 Headache (principal); M54.9 Dorsalgia, unspecified; C50.919 Malignant neoplasm of unspecified site of unspecified female breast; Z86.73 Personal history of transient ischemic attack (TIA), and cerebral infarction without residual deficits
CPT/HCPCS: 70450; 72100; 99283; 99284

== ENCOUNTER 2017-07-02 03:24 | Outpatient (CLI) | payer MEDICARE, MEDICAID | END 2017-07-02 03:25 | disposition critical access hospital (66) | LOC: EMS 03:24 | PROVIDERS: ATTEND Surgery | DX: L02.32 Furuncle of buttock (principal) | CPT/HCPCS: A0425; A0429 ==

== ENCOUNTER 2017-07-02 03:33 | Emergency (ER) | payer MEDICARE, MEDICAID ==
--- NOTE | 2017-07-02 03:37 | ED Physician Documentation ---
PD HPI SKIN - Stated complaint Stated Complaint: BOIL ON GLUTEAL - History obtained from History obtained from: Patient, EMS - History of Present Illness Timing - onset: Today Timing - details: Gradual onset, Still present Location: RLE Quality / character: Painful Similar symptoms before: Has not had sx before Recently seen: Not recently seen - Additional information Additional information: Patient is a 62 year old female with cognitive delay who is presenting to the emergency department for an abscess on her leg. Patient called ems who tried to talk the patient out of coming, but patient insisted. Review of Systems Constitutional: denies: Fever, Chills Eyes: reports: Reviewed and negative Ears: reports: Reviewed and negative Nose: reports: Reviewed and negative Throat: reports: Reviewed and negative Cardiac: reports: Reviewed and negative Respiratory: reports: Reviewed and negative GI: reports: Reviewed and negative : reports: Reviewed and negative Skin: reports: Rash, Lesions Musculoskeletal: reports: Extremity pain Neurologic: reports: Reviewed and negative Immunocompromised: denies: Immunocompromised PD PAST MEDICAL HISTORY - Past Medical History Cardiovascular: None Respiratory: None Neuro: CVA Endocrine/Autoimmune: None GI: GERD 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: Breast cancer : None Psych: Eating disorder Musculoskeletal: Osteoarthritis, Fatigue, Scoliosis, Chronic back pain, Other ( recent breast cancer Dx with surgery few months ago) - Past Surgical History Past Surgical History: Yes General: Other Ortho: Spine surgery, Other HEENT: Tonsil/Adenoidectomy - Present Medications Home Medications: Ambulatory Orders Medication Instructions Recorded Confirmed Sertraline HCl 200 mg PO DAILY 12/19/12 05/15/17 Furosemide [Lasix] 80 mg PO BID 08/10/13 05/15/17 Multivitamin [Multivitamins] 1 each PO DAILY 08/10/13 05/15/17 Ascorbic Acid [Vitamin C] 500 mg ORAL DAILY 01/30/17 05/15/17 Calcium Carbonate/Vitamin D3 500 mg ORAL TID 01/30/17 05/15/17 [Calcium 500-Vit D3 200 Tablet] Cholecalciferol (Vitamin D3) 100 unit ORAL BID 01/30/17 05/15/17 [Vitamin D3] Cyclophosphamide 100 mg PO BID 01/30/17 05/15/17 Docusate Sodium 100 mg PO DAILY PRN 01/30/17 05/15/17 Ferrous Gluconate 324 mg PO DAILY 01/30/17 05/15/17 Lactobacillus Acidophilus 1 tab ORAL DAILY 01/30/17 05/15/17 [Acidophilus] Omeprazole [PriLOSEC] 20 mg ORAL DAILY 01/30/17 05/15/17 Spironolactone 25 mg PO DAILY 01/30/17 05/15/17 Vit B1/B2/B6/FA/Mecobalamin 1,000 mg ORAL DAILY 01/30/17 05/15/17 [Methaver 109 mg Capsule] Potassium Chloride 10 meq PO DAILY #15 tablet.er 02/13/17 05/15/17 - Allergies Allergies/Adverse Reactions: Allergies Allergy/AdvReac Type Severity Reaction Status Date / Time methohexital sodium * Allergy Respiratory Verified 07/02/17 03:41 [From Brevital] metoclopramide HCl * Allergy Respiratory Verified 07/02/17 03:41 [From Reglan] - Social History Does the pt smoke?: No Smoking Status: Never smoker Does the pt drink ETOH?: No Does the pt have substance abuse?: No - Immunizations Immunizations are current?: Yes - POLST Patient has POLST: No PD ED PE NORMAL - Vitals Vital signs reviewed: Yes - General General: Alert and oriented X 3, No acute distress - HEENT HEENT: Atraumatic - Neck Neck: Supple, no meningeal sign - Cardiac Cardiac: RRR - Respiratory Respiratory: No respiratory distress - Abdomen Abdomen: Non distended - Neuro Neuro: Alert and oriented X 3 PD ED PE EXPANDED - HEENT HEENT: Dry mucous membranes - Derm Derm: Abscess (small pustule that had already opened, no drainable abscess or surrounding cellulitis) - Extremities Extremities: Right foot, Left foot (contractured feet) Results - Vitals Vitals: Vital Signs - 24 hr 07/02/17 03:39 Temperature 36.5 C Heart Rate 74 Respiratory 18 Rate Blood Pressure 140/81 H O2 Saturation 95 Oxygen O2 Source Room air PD MEDICAL DECISION MAKING - ED course Complexity details: reviewed old records, re-evaluated patient, considered differential, d/w patient ED course: Patient was seen and examined at bedside. Patient was well appearing and in no distress. there was no drainable abscess or fluid collection or surrounding cellulitis. Bacitracin was placed on the wound. patient required no further work up and was stable for discharge with outpatient follow up. Departure - Departure Disposition: 01 Home, Self Care Clinical Impression: Skin infection Condition: Good Instructions: ED Abscess IandD Follow-Up: Violetta Sams MD [Primary Care Provider] - As Needed Comments: It appears that you had an abscess that has since opened up. You can apply topical antibiotics. You should keep the area clean and dry. You should follow up with your doctor as needed. You may return to the emergency department at any time for new, worsening or uncontrollable symptoms.
[2017-07-02] MEDS ORDERED: BACITRACIN OINT TOP STA (03:38)
[2017-07-02 06:46] VITALS: BP 133/80
== END 2017-07-02 08:06 | disposition home or self-care (01) ==
LOC: EDUNIT# → SUPCPDRO 03:33 → ED 03:33
DX: L08.9 Local infection of the skin and subcutaneous tissue, unspecified (principal); C50.919 Malignant neoplasm of unspecified site of unspecified female breast
CPT/HCPCS: 99283